=== PATIENT | female | born 1965 | race Caucasian/White ===

== ENCOUNTER 2017-11-19 08:53 | Day surgery (SDC) | payer BC ==
[2017-11-17 15:48] VITALS: BMI 32.5
[2017-11-19] MEDS ORDERED: LIDOCAINE HCL/PF 2% SDV 5ML VIAL ONE (09:15)
[2017-11-19] MEDS ORDERED: PROPOFOL 20 ML ONE ×2 (09:15)
[2017-11-19 09:19] VITALS: TEMP 98
[2017-11-19 10:45] VITALS: BP 115/77; PULSE 63
--- NOTE | 2017-11-21 12:11 | PATH ---
Surgical Pathology Report Patient Name: JARVIS MCKINNEY [facility]. Rec. #: [id number] /Age/Gender: 1965 (Age: 52) / F Account: [id number] Location: [facility]-ENDOSCOPY Taken: 11/19/2017 Received: 11/19/2017 Reported: 11/21/2017 Physicians: Lilliana Murphy M.D. Specimen(s) Received A: BX DUODENUM B: BX ANTRUM C: GE JUNCTION Clinical History Abdominal pain Postoperative diagnosis: Rule out celiac disease, gastritis, rule out Dolan's esophagus Final Diagnosis A. DUODENUM, BIOPSY: DUODENAL MUCOSA WITH NO PATHOLOGIC FINDINGS. Note: Features suggestive of celiac disease are not identified in this biopsy. B. ANTRUM, BIOPSY: MILD CHRONIC GASTRITIS. IMMUNOSTAIN IS NEGATIVE FOR H PYLORI ORGANISMS. C. GE JUNCTION, BIOPSY: COLUMNAR (GASTRIC CARDIA-TYPE) MUCOSA SHOWING MILD CHRONIC INFLAMMATION. NEGATIVE FOR INTESTINAL METAPLASIA. ESOPHAGEAL (SQUAMOUS) MUCOSA SHOWING NO SIGNIFICANT PATHOLOGIC FINDINGS. Electronically Signed Nadia Kang M.D. Gross Description A. Received in formalin, labeled "duodenum" is a elizalde, irregular portion of soft tissue measuring 0.4 cm. in greatest dimension. The specimen is submitted in toto in one cassette. B. Received in formalin, labeled "antrum" is a elizalde, irregular portion of soft tissue measuring 0.3 cm. in greatest dimension. The specimen is submitted in toto in one cassette. C. Received in formalin, labeled "GE junction" are 3 elizalde, irregular portions of soft tissue ranging from 0.2-0.5 cm. in greatest dimension. The specimens are submitted in toto in one cassette. 11/20/2017 saudi11/20/2017
== END 2017-11-19 10:45 | disposition home or self-care (01) ==
LOC: FASU-ENDO 08:53
PROVIDERS: ATTEND Internal Medicine Gastroenterology
PROC: 0DB48ZX Excision of Esophagogastric Junction, Via Natural or Artificial Opening Endoscopic, Diagnostic (ICD-10-PCS; 2017-11-19)
PROC: 0DB98ZX Excision of Duodenum, Via Natural or Artificial Opening Endoscopic, Diagnostic (ICD-10-PCS; principal; 2017-11-19 09:54)
PROC: 0DB68ZX Excision of Stomach, Via Natural or Artificial Opening Endoscopic, Diagnostic (ICD-10-PCS; 2017-11-19 09:54)
DX: K29.50 Unspecified chronic gastritis without bleeding (principal); R10.9 Unspecified abdominal pain
CPT/HCPCS: 84703; 88305-TC; 88342-TC

== ENCOUNTER 2018-04-23 06:12 | Day surgery (SDC) | payer BC ==
[2018-04-22 12:38] VITALS: BMI 34.3
[2018-04-23 06:44] VITALS: TEMP 97.3
[2018-04-23] MEDS ORDERED: MIDAZOLAM HCL 2 MG/2 ML SINGLE DOSE VIAL ONE (07:24)
[2018-04-23] MEDS ORDERED: PROPOFOL 20 ML ONE ×2 (07:27→08:16)
[2018-04-23] MEDS ORDERED: LIDOCAINE HCL/PF 2% SDV 5ML VIAL ONE (07:27)
[2018-04-23] MEDS ORDERED: SUCCINYLCHOLINE CHLORIDE 200 MG/10 ML VIAL ONE (07:28)
[2018-04-23] MEDS ORDERED: ROCURONIUM BROMIDE 50 MG/5 ML VIAL ONE (07:28)
[2018-04-23] MEDS ORDERED: BUPIVACAINE HCL/PF 0.5% (5MG/ML) 10 ML VIAL ONE (07:37)
[2018-04-23] MEDS ORDERED: oxyCODONE HCL 5 MG TABLET PO PRN ×2 (07:48)
[2018-04-23] MEDS ORDERED: ONDANSETRON 4 MG/2 ML VIAL IVPUSH PRN (07:48)
[2018-04-23] MEDS ORDERED: LACTATED RINGERS SOLUTION 1,000 ML IV SCH (08:00)
[2018-04-23] MEDS ORDERED: ceFAZolin SODIUM 1 GM VIAL IVPB ONE (08:16)
[2018-04-23] MEDS ORDERED: ceFAZolin SODIUM 1 GM VIAL ONE (08:21)
[2018-04-23] MEDS ORDERED: SODIUM CHLORIDE 0.9% P/F 10 ML VIAL IJ ONE (08:21)
[2018-04-23] MEDS ORDERED: LIDOCAINE HCL 1%, 10 MG/ML (20ML VIAL) NR ONE (08:31)
[2018-04-23] MEDS ORDERED: BUPIVACAINE HCL/PF (5 MG/ML) 30 ML VIAL IJ ONE (08:31)
--- NOTE | 2018-04-23 08:51 | HP ---
[facility] - Chief Complaint Chief Complaint: left hand numbness, pain, weakness History of Present Illness: left CTS History Source: Patient Limitations to Obtaining History: No Limitations - Past Medical History Allergies/Adverse Reactions: Allergies Allergy/AdvReac Type Severity Reaction Status Date / Time azithromycin Allergy Severe Vomiting Verified 04/23/18 06:46 [From Zithromax Z-Ziggy] tomato [Tomato] Allergy Intermediate SORES Verified 04/23/18 06:46 ...LMP: 09/29/16 - Current Medications Current Medications: Home Medications Medication Instructions Recorded Omeprazole 20 mg PO DAILY 05/27/11 Hydrocodone/Acetaminophen 1 - 2 tab PO TID PRN #30 tablet 04/23/18 [Hydrocodone-Acetamin 5-325 mg] MDD 6 Satellite Physical Exam - Physical Examination Vital Signs: Vital Signs Period Temp Pulse Resp BP Sys/Oglesby Pulse Ox Last 24 Hr 97.3 F 73 16 130/73 96 General Appearance: Well Nourished ENT: Clear Lung: Clear to auscultation Heart: Regular rate & rhythm Breasts: Soft Abdomen: Soft Extremities: No edema Satellite Impression/Plan - Impression/Plan Impression: left CTS Operative Procedure: left CTR, tenosynovectomy Date to be Performed: 04/23/18
--- NOTE | 2018-04-23 08:52 | OP ---
Operative Note - Note: Operative Date: 04/23/18 Pre-Operative Diagnosis: left CTS, tenosynovitis Operation: left CTR, tenosynovectomy Post-Operative Diagnosis: Same as Pre-op Surgeon: Dylan Noyola Anesthesiologist/HOME VISIT FIELD CARE MANAGER: Glen Jaramillo Anesthesia: Local, MAC Specimens Removed: tenosynovium Estimated Blood Loss (mls): 0 Drains, Volume Out (mls): 0 Blood Volume Replaced (mls): 0 Fluid Volume Replaced (mls): 500 Operative Report Dictated: Yes
--- NOTE | 2018-04-23 09:31 | SPEC ---
DATE OF OPERATION: 04/23/2018 PREOPERATIVE DIAGNOSIS: Left carpal tunnel syndrome and tenosynovitis. POSTOPERATIVE DIAGNOSIS: Left carpal tunnel syndrome and tenosynovitis. OPERATION: Left carpal tunnel release and tenosynovectomy. SURGEON: Dylan Noyola M.D. ASSISTANTS: None. ANESTHESIOLOGIST: Glen Jaramillo M.D. ANESTHESIA: MAC, local injection with 15 mL of 0.5% Marcaine and 1% lidocaine mix. DRAINS: None. COMPLICATIONS: None. SPECIMENS: Tenosynovium, left wrist. BLOOD LOSS: None. BLOOD GIVEN: None. FLUID REPLACEMENT: 500 mL of Plasmalyte. INDICATIONS: After understanding the potential risks, complications, alternatives and benefits of surgery versus nonsurgical treatment, the patient elected to undergo this procedure. DESCRIPTION OF PROCEDURE: The patient was brought to the operating room, peripheral IV placed and intravenous sedation was given. One gram of intravenous Ancef was given. MAC anesthesia was induced. A tourniquet was applied to the left upper arm and the left upper extremity was prepped and draped in sterile fashion. The entire case was done under 3.8 loupe magnification. A marking pen was utilized to elsie out a longitudinal incision in an already existing skin crease. Twenty mL of 0.5% Marcaine mixed with 1% Lidocaine was injected in and around the surgical incision. The left upper extremity was elevated, exsanguinated with an Esmarch bandage and the tourniquet inflated to 250 mmHg. A No. 15 scalpel blade was utilized to cut down through the skin. Subcutaneous hemostasis was achieved with the bipolar cautery. Dissection was done through the superficial palmar fascia. Self-retaining retractors were placed into the wound. Under direct visualization, the transverse carpal ligament was transected with a No. 15 scalpel blade, exposing the median nerve and the contents of the carpal tunnel. The distal and proximal extents of the release were completed with a Littler scissor and checked with irrigation and my small finger. They were seen to be complete. Limited dissection was done on the radial side of the median nerve and more extensive dissection was done on the ulnar side of the median nerve. The patients nerve was seen to be quite compressed by epineurium and therefore a limited epineurotomy was performed. A Ragnell retractor was used to gently retract the median nerve in a radial direction. The patient had a lot of tenosynovitis and therefore a tenosynovectomy was performed off all 9 flexor tendons. This was passed off the field as tenosynovium left wrist. The floor of the carpal tunnel was checked. There were no abnormal masses or ganglion cysts. The area was copiously irrigated and washed out and closure begun. Undyed 4-0 Vicryl was used to close the deep dermal layer. Final skin reapproximation was done with horizontal mattress 4-0 nylon sutures. The area was then washed and dried, covered with Xeroform, 4x4s, fluffs between the fingers, Webril and a 4-inch plaster roll was utilized to make a volar splint, which was then wrapped with Alon and Coban. The tourniquet was taken down after a total tourniquet time of 16 minutes. There were no complications during the case. The patient tolerated the procedure well and was brought to the ambulatory recovery room in stable condition. Herann [id number]
[2018-04-23 11:48] VITALS: BP 129/59; PULSE 77
--- NOTE | 2018-04-24 14:34 | PATH ---
Surgical Pathology Report Patient Name: JARVIS MCKINNEY [facility]. Rec. #: [id number] /Age/Gender: 1965 (Age: 52) / F Account: [id number] Location: [facility] SURGICAL Taken: 04/23/2018 Received: 04/23/2018 Reported: 04/24/2018 Physicians: Dylan Noyola M.D. Specimen(s) Received LEFT TENOSYNOVIUM Clinical History Left carpal tunnel Final Diagnosis LEFT TENOSYNOVIUM, EXCISION: TENOSYNOVIAL TISSUE WITH FIBROSIS. Electronically Signed Radha Hinson M.D. Gross Description Received in formalin labeled "left tenosynovium," is a 2.0 x 1.4 x 0.3 cm aggregate of elizalde-yellow soft tissue fragments, consistent with tenosynovium. The specimen is submitted in toto in one cassette. DL/04/23/2018 saudi04/23/2018
== END 2018-04-23 11:15 | disposition home or self-care (01) ==
LOC: JASU-SURG 06:12
PROVIDERS: ATTEND Orthopaedic Surgery
PROC: 01N50ZZ Release Median Nerve, Open Approach (ICD-10-PCS; principal; 2018-04-23 08:00)
DX: G56.02 Carpal tunnel syndrome, left upper limb (principal)
CPT/HCPCS: 88304-TC

== ENCOUNTER 2022-01-06 11:55 | Emergency (ER) | payer BC ==
[2022-01-06 12:07] VITALS: BP 137/91; PULSE 89; RESP 18; TEMP 97.8; BMI 40.2
[2022-01-06] MEDS ORDERED: LIDOCAINE HCL 1%, 10 MG/ML (20ML VIAL) ONE (12:46)
[2022-01-06] MEDS ORDERED: DIPHTH,PERTUSS(ACELL),TET 0.5 ML DISP.SYRIN IM ONE ×2 (13:29→13:32)
== END 2022-01-06 13:38 | disposition home or self-care (01) ==
LOC: FER 11:55
PROC: 3E0234Z Introduction of Serum, Toxoid and Vaccine into Muscle, Percutaneous Approach (ICD-10-PCS; principal; 2022-01-06)
DX: S61.210A Laceration without foreign body of right index finger without damage to nail, initial encounter (principal); W22.8XXA Striking against or struck by other objects, initial encounter
CPT/HCPCS: 73140-TC-RT-FY; 90715; 99282-25

== ENCOUNTER 2022-05-23 07:46 | Day surgery (SDC) | payer BC ==
[2022-05-22 14:10] VITALS: BMI 37.8
[2022-05-23] MEDS ORDERED: MIDAZOLAM HCL 2 MG/2 ML SINGLE DOSE VIAL ONE ×2 (09:08→09:26)
[2022-05-23] MEDS ORDERED: ROPIVACAINE HCL 0.5% 30ML VIAL ONE (09:09)
[2022-05-23] MEDS ORDERED: LIDOCAINE HCL/PF 2% SDV 5ML VIAL ONE (09:41)
[2022-05-23] MEDS ORDERED: SUCCINYLCHOLINE CHLORIDE 200 MG/10 ML SYRINGE ONE (09:41)
[2022-05-23] MEDS ORDERED: PROPOFOL 40 ML ONE (09:41)
[2022-05-23] MEDS ORDERED: DEXAMETHASONE SOD PHOSPHATE 4 MG/1 ML VIAL ONE ×2 (09:41)
[2022-05-23] MEDS ORDERED: PHENYLEPHRINE HCL 10 MG/1 ML SINGLE DOSE VIAL ONE (09:43)
[2022-05-23] MEDS ORDERED: PROPOFOL 20 ML ONE ×2 (11:04→11:49)
[2022-05-23] MEDS ORDERED: ePHEDrine SULFATE 50 MG/1 ML AMPULE ONE (11:12)
[2022-05-23] MEDS ORDERED: EPINEPHrine 1:10,000 (P-F SYR) 1 MG/10 ML DISP.SYRIN ONE (11:12)
[2022-05-23] MEDS ORDERED: GLYCOPYRROLATE 0.2 MG/1 ML VIAL ONE (11:19)
[2022-05-23] MEDS ORDERED: ONDANSETRON 4 MG/2 ML VIAL ONE (12:17)
[2022-05-23] MEDS ORDERED: oxyCODONE HCL 5 MG TABLET PO PRN ×2 (12:50)
[2022-05-23] MEDS ORDERED: ONDANSETRON 4 MG/2 ML VIAL IVPUSH PRN (12:50)
[2022-05-23] MEDS ORDERED: ACETAMINOPHEN 1000 MG/100 ML BAG IVPB ONE (12:50)
[2022-05-23] MEDS ORDERED: LACTATED RINGERS SOLUTION 1,000 ML IV SCH (13:00)
[2022-05-23] MEDS ORDERED: KETOROLAC TROMETHAMINE 30 MG/1 ML VIAL IVPUSH SCH (13:00)
[2022-05-23] MEDS ORDERED: KETOROLAC TROMETHAMINE 30 MG/1 ML VIAL IM ONE (14:30)
[2022-05-23 18:07] VITALS: TEMP 97.6
[2022-05-23 18:11] VITALS: BP 120/72; PULSE 84; RESP 16
== END 2022-05-23 15:30 | disposition home or self-care (01) ==
LOC: FASU 07:46
PROVIDERS: ATTEND Orthopaedic Surgery
PROC: 0RBK4ZZ Excision of Left Shoulder Joint, Percutaneous Endoscopic Approach (ICD-10-PCS; 2022-05-23)
PROC: 0PBB4ZZ Excision of Left Clavicle, Percutaneous Endoscopic Approach (ICD-10-PCS; principal; 2022-05-23 11:19)
PROC: 0LS44ZZ Reposition Left Upper Arm Tendon, Percutaneous Endoscopic Approach (ICD-10-PCS; 2022-05-23 11:19)
DX: M19.012 Primary osteoarthritis, left shoulder (principal); M75.42 Impingement syndrome of left shoulder; M75.102 Unspecified rotator cuff tear or rupture of left shoulder, not specified as traumatic; M24.112 Other articular cartilage disorders, left shoulder; M66.812 Spontaneous rupture of other tendons, left shoulder
CPT/HCPCS: 94760; C1713

== ENCOUNTER 2023-06-23 03:57 | Day surgery (SDC) | payer BC ==
[2023-06-16 14:46] VITALS: BMI 36.8
[2023-06-23] MEDS ORDERED: LIDOCAINE HCL 1%, 10 MG/ML (20ML VIAL) ONE (12:50)
[2023-06-23] MEDS ORDERED: BUPIVACAINE HCL/PF 0.5% (5MG/ML) 10 ML VIAL ONE (12:54)
[2023-06-23] MEDS ORDERED: MIDAZOLAM HCL 2 MG/2 ML SINGLE DOSE VIAL ONE ×2 (13:25→13:51)
[2023-06-23] MEDS ORDERED: PROPOFOL 20 ML ONE ×2 (13:25→14:15)
[2023-06-23] MEDS: ceFAZolin SODIUM 1 GM VIAL IVPB ONE (13:50)
[2023-06-23] MEDS: BUPIVACAINE HCL/PF 0.5% (5MG/ML) 10 ML VIAL IJ ONE (13:59)
[2023-06-23] MEDS: LIDOCAINE HCL 1%, 10 MG/ML (20ML VIAL) INF ONE (13:59)
[2023-06-23] MEDS ORDERED: ONDANSETRON 4 MG/2 ML VIAL ONE (14:00)
[2023-06-23] MEDS ORDERED: KETOROLAC TROMETHAMINE 30 MG/1 ML VIAL ONE (14:00)
[2023-06-23 16:18] VITALS: BP 108/52; PULSE 60; RESP 18; TEMP 97
== END 2023-06-23 15:55 | disposition home or self-care (01) ==
LOC: JASU-SURG 03:57
PROVIDERS: ATTEND Orthopaedic Surgery
PROC: 0LB60ZZ Excision of Left Lower Arm and Wrist Tendon, Open Approach (ICD-10-PCS; principal; 2023-06-23 13:00)
DX: M67.432 Ganglion, left wrist (principal)
CPT/HCPCS: 88305-TC

== ENCOUNTER 2024-04-29 04:46 | Day surgery (SDC) | payer BC ==
[2024-04-28 10:37] VITALS: BMI 32.5
[2024-04-29 08:39] VITALS: TEMP 97.1
[2024-04-29 09:05] VITALS: PULSE 60
[2024-04-29 09:10] VITALS: BP 103/67; RESP 17
== END 2024-04-29 09:27 | disposition home or self-care (01) ==
LOC: JASU-ENDO 04:46
PROVIDERS: ATTEND Internal Medicine Gastroenterology
PROC: 0DB98ZX Excision of Duodenum, Via Natural or Artificial Opening Endoscopic, Diagnostic (ICD-10-PCS; 2024-04-29)
PROC: 0DB78ZX Excision of Stomach, Pylorus, Via Natural or Artificial Opening Endoscopic, Diagnostic (ICD-10-PCS; 2024-04-29)
PROC: 0DB68ZX Excision of Stomach, Via Natural or Artificial Opening Endoscopic, Diagnostic (ICD-10-PCS; 2024-04-29)
PROC: 0DB18ZX Excision of Upper Esophagus, Via Natural or Artificial Opening Endoscopic, Diagnostic (ICD-10-PCS; 2024-04-29)
PROC: 0DB38ZX Excision of Lower Esophagus, Via Natural or Artificial Opening Endoscopic, Diagnostic (ICD-10-PCS; 2024-04-29)
PROC: 0DJD8ZZ Inspection of Lower Intestinal Tract, Via Natural or Artificial Opening Endoscopic (ICD-10-PCS; principal; 2024-04-29 08:00)
DX: Z12.11 Encounter for screening for malignant neoplasm of colon (principal); K29.50 Unspecified chronic gastritis without bleeding; K31.7 Polyp of stomach and duodenum; K21.00 Gastro-esophageal reflux disease with esophagitis, without bleeding; K44.9 Diaphragmatic hernia without obstruction or gangrene; K22.81 Esophageal polyp
CPT/HCPCS: 82962; 88305-TC; 88342-TC

== ENCOUNTER 2024-12-10 06:14 | Day surgery (SDC) | payer BC ==
[2024-12-08 14:48] VITALS: BMI 32.4
[2024-12-10] MEDS ORDERED: LIDOCAINE HCL/PF 1% SDV 5ML VIAL ONE (07:33)
[2024-12-10] MEDS ORDERED: DEXAMETHASONE SOD PHOSPHATE 10 MG/1 ML VIAL ONE (07:33)
[2024-12-10 08:01] VITALS: RESP 18; TEMP 97.7
[2024-12-10 09:01] VITALS: BP 123/75; PULSE 53
== END 2024-12-10 09:15 | disposition home or self-care (01) ==
LOC: JASU-SURG 06:14
PROVIDERS: ATTEND Pain Medicine Pain Medicine
PROC: 3E0R3BZ Introduction of Anesthetic Agent into Spinal Canal, Percutaneous Approach (ICD-10-PCS; 2024-12-10)
PROC: 3E0R33Z Introduction of Anti-inflammatory into Spinal Canal, Percutaneous Approach (ICD-10-PCS; principal; 2024-12-10 08:44)
DX: M54.12 Radiculopathy, cervical region (principal)
CPT/HCPCS: 76000-TC-FY; J1100